=== PATIENT | female | born 2005 | race Caucasian/White ===

== ENCOUNTER 2025-03-08 14:00 | Emergency (ER) | payer MEDICARE, OTHER ==
[~2025-03-08] VITALS: Ht 172.7 cm; Wt 52.6 kg
[2025-03-08] MEDS ORDERED: FLUORESCEIN SODIUM 1 MG STRIP ONE (14:36)
[2025-03-08] MEDS: FLUORESCEIN SODIUM 1 MG STRIP OP ONE (14:53)
[2025-03-08] MEDS: IV NS 1000 ML 1,000 ML IV ONE (15:06)
[2025-03-08] MEDS ORDERED: KETOROLAC TROMETHAMINE 30 MG INJ ONE (15:07)
[2025-03-08] MEDS ORDERED: METOCLOPRAMIDE HCL 10 MG/2 ML VIAL ONE (15:07)
[2025-03-08] MEDS ORDERED: diphenhydrAMINE 50 MG/1 ML VIAL ONE (15:07)
[2025-03-08] MEDS: diphenhydrAMINE 50 MG/1 ML VIAL IV ONE (15:13)
[2025-03-08] MEDS: METOCLOPRAMIDE HCL 10 MG/2 ML VIAL IV ONE (15:13)
[2025-03-08] MEDS: KETOROLAC TROMETHAMINE 30 MG INJ IVP ONE (15:13)
[2025-03-08 15:25] VITALS: BP 114/73
[2025-03-08] MEDS ORDERED: SUMA100T16 PO (16:14)
[2025-03-08] MEDS ORDERED: NAPR-1477 PO (16:14)
[2025-03-08 16:33] VITALS: BP 110/99; O2SAT 99
== END 2025-03-08 16:26 | disposition home or self-care (01) ==
LOC: ER 14:00
DX: G43.109 Migraine with aura, not intractable, without status migrainosus (principal); F12.90 Cannabis use, unspecified, uncomplicated; Z88.8 Allergy status to other drugs, medicaments and biological substances
CPT/HCPCS: A4606; A4663; J1200; J1885; J2765; J7040